=== PATIENT | female | born 1970 | race Caucasian/White ===

== ENCOUNTER 2019-07-12 12:07 | Emergency (ER) | payer SELFPAY ==
[~2019-07-12] VITALS: Ht 170.2 cm; Wt 63.6 kg
[2019-07-12 12:50] VITALS: Ht 170.2 cm; Wt 63.6 kg
[2019-07-12 13:33] LABS: BASOPHIL % 0.8 % (0-2)
[2019-07-12 13:36] LABS: PLATELET COUNT 427 x10^3mcL (130-400); RED CELL DISTRIBUTION WIDTH 14.6 % (11.5-14.5)
[2019-07-12 13:44] LABS: CARBON DIOXIDE 23.3 mmol/L (21-32); CREATININE SERUM 1.1 mg/dL (0.6-1.0); POTASSIUM SERUM 3.9 mmol/L (3.5-5.1)
[2019-07-12 13:49] LABS: BILIRUBIN TOTAL 0.2 mg/dL (0.20-1.00); TOTAL PROTEIN, SERUM 7.8 g/dL (6.4-8.2)
[2019-07-12 15:13] VITALS: BP 127/87
== END 2019-07-12 15:13 | disposition home or self-care (01) ==
LOC: ED 12:07
PROVIDERS: Emergency Medicine
DX: N20.0 Calculus of kidney (principal); Z90.49 Acquired absence of other specified parts of digestive tract; Z90.710 Acquired absence of both cervix and uterus; Z88.1 Allergy status to other antibiotic agents; Z88.2 Allergy status to sulfonamides
CPT/HCPCS: J1885; J3010; J7030